=== PATIENT | female | born 1955 | race Caucasian/White ===

== ENCOUNTER 2023-02-28 10:45 | Outpatient (RCR) | payer OTHER, SELFPAY | END 2023-06-01 08:29 | disposition home or self-care (01) | PROVIDERS: PCP Family Medicine; Visit Provider Family Medicine | DX: N39.41 Urge incontinence (principal); N81.11 Cystocele, midline; Z51.89 Encounter for other specified aftercare | CPT/HCPCS: 97110; 97140; 97162 ==